=== PATIENT | female | born 1950 | race Caucasian/White ===

== ENCOUNTER 2017-06-01 09:51 | Outpatient (CLI) | payer MEDICARE, BC ==
--- NOTE | 2017-06-01 13:46 | MRI ---
MRI LEFT KNEE WITHOUT CONTRAST: Date: 06/01/17 HISTORY: M25.562, left knee pain. COMPARISON: None. FINDINGS: Medial Meniscus: There is moderate degenerative signal at mid body and posterior horn medial meniscus. Lateral Meniscus: Intact. ACL and PCL: Intact. Mild thickening of the proximal portion of the medial and lateral collateral ligaments. Extensor Mechanism: Quadriceps tendon, patella, and patellar tendon are all intact. Cartilage: There is near full thickness cartilage fissures of the superior margin of the lateral patellar facet with subchondral cystic change. There is also moderate chondral fraying of the midline trochlea. Medial Compartment: Intact. Lateral Compartment: Intact. There are also lobulated popliteal cysts with numerous septations. Muscle signal and bulk are normal. IMPRESSION: 1. Undersurface horizontal flap tear of body and posterior horn medial meniscus with gutter extrusi on of flap fragment and mild loss of hoop stress. There is subsequent Grade II chondromalacia of the medial compartment. 2. Moderate osteoarthritic disease with tricompartmental osteophytes. 3. Moderate thickening of the proximal portions of the medial and lateral collateral ligamentous co mplexes without tear. 4. Grade III chondromalacia of patellofemoral compartment. 5. Popliteal cysts without evidence of leak. 6. Small popliteus bursal effusion. 7. Mild degenerative disease of the proximal tibiofibular joint. 8. Small ganglion cyst along the anterior margin of the anterior cruciate ligament, likely decompre ssion of mucinous degeneration. POS: [facility]
== END 2017-06-01 09:52 | disposition home or self-care (01) ==
LOC: MRI 09:51
PROVIDERS: ATTEND Orthopaedic Surgery
DX: M25.562 Pain in left knee (principal); S83.242A Other tear of medial meniscus, current injury, left knee, initial encounter; M25.462 Effusion, left knee; M71.22 Synovial cyst of popliteal space [Baker], left knee; M22.42 Chondromalacia patellae, left knee

== ENCOUNTER 2019-08-15 10:05 | Outpatient (CLI) | payer MEDICARE, BC ==
[2019-08-15 11:13] LABS: #Eosinphils 0.3 thou/uL (0.0-0.7); #Lymphocytes 2.4 thou/uL (1.20-3.40); #Monocytes 0.6 thou/uL (0.11-0.59); #Neutrophils 3.8 thou/uL (1.40-6.50); %Basophils 0.6 % (0.0-1.0); %Eosinophils 3.9 % (0.0-10.0); %Monocytes 8.9 % (0.0-10.0); %Neutrophils 52.6 % (42.0-75.0); Hemoglobin 13.8 g/dL (12.0-16.0); Mean Corpuscular HGB CONC 33.8 g/dL (32.0-36.0); Mean Corpuscular Hemoglobin 32.5 pg (27.0-31.0); Mean Corpuscular Volume 96.3 fL (78.0-98.0); Mean Platelet Volume 9.1 fL (7.4-10.4); Platelet Count 196 thou/uL (130-400); RBC Distribution Width 12.5 % (11.5-14.5); Red Blood Cell (RBC) Count 4.23 mill/uL (4.20-5.40); White Blood Cell (WBC) Count 7.2 thou/uL (4.8-10.8)
[2019-08-15 11:33] LABS: Bacteria/HPF None Seen HPF (None Seen); Bilirubin Negative (Negative); Blood, Urine Negative (Negative); Clarity Clear (Clear); Glucose, Urine (Dipstick) Normal (Negative); Leukocyte 25 Leu/uL (Negative); Nitrite Negative (Negative); Protein, Urine (Dipstick) Negative (Neg-Trace); RBC/HPF 0-3 HPF (0-3); Squamous Epithelial 0-3 HPF (0-3); Urobilinogen Normal mg/dL (Less than 2); WBC/HPF 0-3 HPF (0-3)
[2019-08-15 11:40] LABS: Anion Gap 12 mmol/L (10-20); BUN (Urea Nitrogen) 23 mg/dL (9.8-20.1); Calc. Creatinine Clearance 0 mL/min (70-130); Calcium 9.3 mg/dL (7.8-10.44); Carbon Dioxide 27 mmol/L (23-31); Chloride 105 mmol/L (98-107); Estimated GFR-MDRD 69; Glucose 104 mg/dL (80-115); Potassium 3.9 mmol/L (3.5-5.1); Sodium 140 mmol/L (136-145)
--- NOTE | 2019-08-20 10:25 | EKG ---
Test Reason : Blood Pressure : / mmHG Vent. Rate : 067 BPM Atrial Rate : 067 BPM P-R Int : 152 ms QRS Dur : 104 ms QT Int : 416 ms P-R-T Axes : 058 019 005 degrees QTc Int : 439 ms Normal sinus rhythm Low voltage QRS Incomplete right bundle branch block Possible Lateral infarct (cited on or before 16-DEC-2015) Possible Inferior infarct (cited on or before 16-DEC-2015) Abnormal ECG When compared with ECG of 16-DEC-2015 10:59, Incomplete right bundle branch block is now Present Questionable change in initial forces of Anterolateral leads Confirmed by DINORAH ELIAS ([id number]) on 08/20/2019 10:25:25 AM Referred By: PORFIRIO Confirmed By:DINORAH ELIAS
== END 2019-08-15 10:06 | disposition home or self-care (01) ==
LOC: LABBT 10:05
PROVIDERS: ATTEND Orthopaedic Surgery Hand Surgery
DX: Z01.818 Encounter for other preprocedural examination (principal); M65.331 Trigger finger, right middle finger; G56.02 Carpal tunnel syndrome, left upper limb
CPT/HCPCS: 80048; 81001; 85025; 93005; 93010

== ENCOUNTER 2019-08-20 06:58 | Day surgery (SDC) | payer MEDICARE, BC ==
[2019-08-15 10:22] VITALS: BMI 32.8
[2019-08-20] MEDS ORDERED: Ondansetron PF 4 MG/2 ML Vial ONE (10:41)
[2019-08-20] MEDS ORDERED: Ketorolac Tromethamine 30 MG/ML VIAL ONE (10:41)
[2019-08-20] MEDS ORDERED: PROPOFOL 200 MG/20 ML VIAL ONE (10:41)
[2019-08-20] MEDS ORDERED: Dexamethasone 20 MG/5 ML VIAL ONE (10:41)
[2019-08-20] MEDS ORDERED: Lidocaine 1% PF 5 ML VIAL ONE (10:41)
[2019-08-20] MEDS ORDERED: Bacitracin Zinc Ointment 30 gm TUBE ONE (10:54)
[2019-08-20] MEDS ORDERED: Sodium Chloride 0.9% 10 ML ONE (10:54)
[2019-08-20] MEDS ORDERED: Betamet Acet/Betamet Na Ph 30 MG/5 ML VIAL ONE (10:54)
[2019-08-20] MEDS ORDERED: Bupivacaine PF 0.5% 30 ML VIAL ONE (10:54)
[2019-08-20] MEDS ORDERED: Fentanyl 100 MCG/2 ML VIAL ONE (10:58)
--- NOTE | 2019-08-21 13:38 | OP ---
DATE OF PROCEDURE: 08/20/2019 PREOPERATIVE DIAGNOSES: 1. Left carpal tunnel syndrome. 2. Right middle finger trigger. POSTOPERATIVE DIAGNOSES: 1. Left carpal tunnel syndrome. 2. Right middle finger trigger with findings at the right side middle finger trigger, combination of thickening of the flexor tendon as well as A1 griselda very thick causing constriction or . PROCEDURE PERFORMED: 1. Left side carpal tunnel injection with 2 mL Celestone, no Marcaine given. 2. Right side middle finger trigger digit release. ESTIMATED BLOOD LOSS: 5 mL. TOURNIQUET TIME: 8 minutes. Again tight A1 griselda with mild tenosynovitis in right middle finger was found. DESCRIPTION OF PROCEDURE: After successful general endotracheal anesthesia, right side was prepped and draped in standard fashion. The left side was prepped only to the point we could then inject the left carpal tunnel. In line with the ring finger, staying one fingerbreadth away from the Guyon's canal, we placed 2 mL of Celestone without much resistance in the carpal canal, waited 5 minutes. No complications. We then took the prepped limb on the right side, outlined an incision along the curvilinear A1 capsule reflection and we were able to then extend this incision down for 1.5 cm to visualize the neurovascular bundles, and protected them. We saw some synechiae and very thick areas of . We then at the middle finger, visualized the neurovascular bundles, protected and released the synechiae proximal to the A1 griselda with tenotomy scissors, Wapwallopen blade for the A1 griselda and then removed a small forming ganglion. We irrigated the area, placed Celestone in the wound, the patient had a total of 0.5% Marcaine block and left the operating room in a bulky dressing with wound closed. No evidence of anesthetic or operative complication. Job ID: [id number]
== END 2019-08-20 14:50 | disposition home or self-care (01) ==
LOC: SDC 06:58
PROVIDERS: ATTEND Orthopaedic Surgery Hand Surgery
PROC: 3E0T33Z Introduction of Anti-inflammatory into Peripheral Nerves and Plexi, Percutaneous Approach (ICD-10-PCS; principal; 2019-08-20)
PROC: 0LN70ZZ Release Right Hand Tendon, Open Approach (ICD-10-PCS; 2019-08-20)
DX: M65.331 Trigger finger, right middle finger (principal); G56.02 Carpal tunnel syndrome, left upper limb; M65.9 Synovitis and tenosynovitis, unspecified; I10 Essential (primary) hypertension; E11.9 Type 2 diabetes mellitus without complications; E07.9 Disorder of thyroid, unspecified; Z79.899 Other long term (current) drug therapy; Z88.5 Allergy status to narcotic agent; Z88.8 Allergy status to other drugs, medicaments and biological substances
CPT/HCPCS: J0690; J0702; J3010; J3490; S0020